=== PATIENT | female | born 1975 | race Caucasian/White ===

== ENCOUNTER → 2024-11-03 | Outpatient (CLI) | payer BC ==
[2024-11-03 08:27] LABS: Basophils # (A) 0.05 10*3/uL (0.00-0.10); Basophils % (A) 0.6 %; Eosinophils % (A) 2.4 %; HCT 41.2 % (37.2-46.3); HGB 14.3 g/dL (12.0-15.0); Lymphocytes # (A) 2.31 10*3/uL (0.90-5.00); Lymphocytes % (A) 27.8 %; MCH 33.3 pg (27.0-32.0); MCHC 34.7 g/dL (32.0-37.0); MCV 95.8 fL (80.0-97.0); Mean Platelet Volume 9.6 fL (9.5-12.2); Monocytes # (A) 0.68 10*3/uL (0.20-1.00); Monocytes % (A) 8.2 %; Neutrophils # (A) 5.06 10*3/uL (1.80-7.70); Neutrophils % (A) 60.9 %; Platelet Count 334 10*3/uL (140-440); RDW 12.4 % (11.5-14.5); WBC 8.31 10*3/uL (4.50-10.00)
[2024-11-03 08:43] LABS: ALT 37 U/L (4-34); AST 36 U/L (14-36); African American GFR (CKD) >90 (>60 ml/min/1.73 sqM); Albumin 4.5 g/dL (3.5-5.0); Albumin/Globulin Ratio 1.5; Alkaline Phosphatase 73 U/L (38-126); Amylase 62 U/L (30-110); Anion Gap 7 mmol/L; Blood Urea Nitrogen 14 mg/dL (7-17); C Reactive Protein <0.5 mg/dL (<1.0); Calcium 9.5 mg/dL (8.4-10.2); Carbon Dioxide 32 mmol/L (22-30); Chloride 100 mmol/L (98-107); Globulin 3.1 g/dL; Glucose 86 mg/dL (74-99); Lipase 317 U/L (23-300); Non-African American GFR(CKD) >90 (>60 ml/min/1.73 sqM); Potassium 4.1 mmol/L (3.5-5.1); Sodium 139 mmol/L (137-145); Total Bilirubin 0.6 mg/dL (0.2-1.3); Total Protein 7.6 g/dL (6.3-8.2)
--- NOTE | 2024-11-03 09:58 | CT ---
EXAMINATION TYPE: CT abdomen pelvis wo/w con DATE OF EXAM: 11/03/2024 8:37 AM COMPARISON: None. CLINICAL INDICATION: Female, 49 years old with history of R10.84 GENERALIZED ABDOMINAL PAIN; generali zed pain for 3 months TECHNIQUE: Axial CT of the abdomen pelvis without and with con; delayed images through the kidneys. Sagittal and coronal reformats were created on a separate workstation. Contrast used:100 mL of Isovue 300 without and with IV Contrast, Oral contrast used: with Oral Contrast CT DLP: 2568.6 mGycm, Automated exposure control for dose reduction was used. FINDINGS: LOWER CHEST: Unremarkable ABDOMEN LIVER: Unremarkable GALLBLADDER AND BILE DUCTS: Bile duct mildly dilated 8 mm. Probably due to postcholecystectomy status . Correlate with alkaline phosphatase and bilirubin levels. PANCREAS: Unremarkable. SPLEEN: Unremarkable. ADRENAL GLANDS: Unremarkable. KIDNEYS AND URETERS: No evidence of hydronephrosis or renal calculus. The ureters are unremarkable. PELVIS BLADDER: No evidence for wall thickening or mass given limitations of exam. REPRODUCTIVE: Uterus anteverted. Both ovaries are visualized. IUD appears abruptly situated within th e uterine cavity. Left-sided pelvic phlebolith. No abnormal fluid collection in the pelvis. ABDOMEN & PELVIS STOMACH AND BOWEL: Post surgical changes of Bakari-en-Y gastric bypass. There are oral contrast has pro gressed to the hepatic flexure of the colon. There is mild overall stool burden. No pericolonic infla mmatory change. No evidence of bowel obstruction. PERITONEUM/RETROPERITONEUM: No evidence of pneumoperitoneum or free fluid. VASCULATURE: No evidence of aortic aneurysm. MUSCULOSKELETAL: Moderate to severe degenerative disc disease mid to lower lumbar spine. Mild to mode rate facet arthropathy throughout. Degenerative trace grade 1 retrolisthesis T12-L4 levels. LYMPH NODES: No gross evidence for lymphadenopathy. SOFT TISSUE/ABDOMINAL WALL: Unremarkable IMPRESSION: 1. Status post Bakari-en-Y gastric bypass. Mild stool burden. 2. Bile duct mildly dilated at 8 mm, probably due to chronic postcholecystectomy status. Correlate wi th alkaline phosphatase and bilirubin levels. 3. Moderate to severe degenerative disc disease mid to lower lumbar spine. [facility], , 11/03/2024 9:56 AM
[2024-11-03 13:11] LABS: Clam IgE <0.10 kU/L; Codfish IgE <0.10 kU/L; Egg White IgE <0.10 kU/L; Peanut IgE <0.10 kU/L; Scallop IgE <0.10 kU/L; Shrimp IgE 0.12 kU/L; Soybean IgE <0.10 kU/L; Walnut IgE (Food) <0.10 kU/L
[2024-11-03 14:02] LABS: Gliadin AB IgA, Deaminated Negative (Negative); Gliadin AB IgA, Unit 1.8 U/mL; Gliadin AB IgG, Deaminated Negative (Negative); Gliadin AB IgG, Unit <0.4 U/mL
== END | disposition home or self-care (01) ==
LOC: RADCTMAIN 06:46
PROVIDERS: ATTEND Internal Medicine Gastroenterology
DX: M51.369 Other intervertebral disc degeneration, lumbar region without mention of lumbar back pain or lower extremity pain (principal); K83.8 Other specified diseases of biliary tract; Z98.84 Bariatric surgery status
CPT/HCPCS: 80053; 82150; 83690; 85025; 86140; 86003; 82785; 83516 ×4; 74178; 36415; Q9967

== ENCOUNTER 2024-11-06 23:56 | Emergency (ER) | payer BC ==
[2024-11-07 00:53] VITALS: BP 141/88; PULSE 76; RESP 16; TEMP 98.2
--- NOTE | 2024-11-07 00:56 | ED ---
Abdominal Pain HPI - General Chief Complaint: Abdominal Pain Stated Complaint: abd pain Time Seen by Provider: 11/07/24 00:56 Source: patient Mode of arrival: ambulatory Limitations: no limitations - History of Present Illness Initial Comments: 49-year-old female presented with chief complaint of abdominal pain. She is having sharp and stabbing pain that started around 7:00 tonight. Located primarily behind her bellybutton and then goes into her back. States that she has been having previous issues with intermittent abdominal pain and had an outpatient lab and CT completed here recently. Review of Systems ROS Statement: Those systems with pertinent positive or pertinent negative responses have been documented in the HPI. ROS Other: All systems not noted in ROS Statement are negative. Past Medical History Past Medical History: GERD/Reflux, Thyroid Disorder History of Any Multi-Drug Resistant Organisms: None Reported Past Surgical History: Appendectomy, Bariatric Surgery, Cholecystectomy, Orthopedic Surgery Additional Past Surgical History / Comment(s): thyroidectomy, knee , wirst Past Psychological History: Anxiety Smoking Status: Never smoker Past Alcohol Use History: Occasional Past Drug Use History: None Reported General Exam - General Exam Comments Initial Comments: Visual Physical Exam Vital signs reviewed General: Well-appearing, nontoxic, no acute distress. Head: Normocephalic, atraumatic Eyes: PERRLA, EOMI ENT: Airway patent Chest: Nonlabored breathing Skin: No visual rash, normal skin tone Neuro: Alert and oriented 3 Musculoskeletal: No gross abnormalities Limitations: no limitations General appearance: alert, in no apparent distress Head exam: Present: atraumatic, normocephalic, normal inspection Eye exam: Present: normal appearance, EOMI Neck exam: Present: normal inspection. Absent: meningismus Respiratory exam: Absent: respiratory distress Cardiovascular Exam: Present: regular rate GI/Abdominal exam: Absent: distended Neurological exam: Present: alert, oriented X3 Psychiatric exam: Present: normal affect, normal mood Skin exam: Present: warm, dry, normal color Course Vital Signs 11/07/24 00:50 Temperature 98.2 F Pulse Rate 76 Respiratory 16 Rate Blood Pressure 141/88 O2 Sat by Pulse 97 Oximetry Medical Decision Making - Medical Decision Making I performed the quick note portion of this visit, electronically signed Evaristo Sparrow PA-C Was pt. sent in by a medical professional or institution ([facility], CRATING AND MOVING ESTIMATOR, urgent care, hospital, or usp...) When possible be specific @ -No Did you speak to anyone other than the patient for history (EMS, parent, family, police, friend...)? What history was obtained from this source @ -No Did you review nursing and triage notes (agree or disagree)? Why? @ -I reviewed and agree with nursing and triage notes Were old charts reviewed (outside hosp., previous admission, EMS record, old EKG, old radiological studies, urgent care reports/EKG's, usp records)? Report findings @ -CT dated 11/03/24 showed status post Bakari-en-Y gastric bypass. Mild stool burden. Bile duct mildly dilated 8 mm probably due to chronic postcholecystectomy status. Moderate to severe degenerative disc disease mid to lower lumbar spine Also reviewed recent outpatient labs, lipase was mildly elevated at 317 Differential Diagnosis (chest pain, altered mental status, abdominal pain women, abdominal pain men, vaginal bleeding, weakness, fever, dyspnea, syncope, headache, dizziness, GI bleed, back pain, seizure, CVA, palpatations, mental health, musculoskeletal)? @ -MDM Differential Abdominal Pain Women: Appendicitis, Cholecystitis, diverticulosis, ischemic bowel, pancreatitis, hepatitis, UTI, gastroenteritis, AAA, incarcerated hernia, bowel obstruction, constipation, inflammatory bowel, hepatitis, peptic ulcer disease, splenic infarction, perforated viscus, vulvitis, ovarian torsion, PID, kidney stone, placenta abruption... This is not meant to be an all-inclusive list EKG interpreted by me (3pts min.). @ -EKG shows sinus rhythm ventricular rate 64. OK interval 177. QRS 106. QT 404. QTc 413 X-rays interpreted by me (1pt min.). @ -None done CT interpreted by me (1pt min.). @ -None done U/S interpreted by me (1pt. min.). @ -None done What testing was considered but not performed or refused? (CT, X-rays, U/S, labs)? Why? @ -None What meds were considered but not given or refused? Why? @ -None Did you discuss the management of the patient with other professionals (professionals i.e. , PA, CRATING AND MOVING ESTIMATOR, lab, RT, psych nurse, protective services social worker, metal mixer, teacher, chief school finance officer, shoe caser)? Give summary @ -No Was smoking cessation discussed for >3mins.? @ -No Was critical care preformed (if so, how long)? @ -No Were there social determinants of health that impacted care today? How? (Homelessness, low income, unemployed, alcoholism, drug addiction, transportation, low edu. Level, literacy, decrease access to med. care, retirement, rehab)? @ -No Was there de-escalation of care discussed even if they declined (Discuss DNR or withdrawal of care, Hospice)? DNR status @ -No What co-morbidities impacted this encounter? (DM, HTN, Smoking, COPD, CAD, Cancer, CVA, ARF, Chemo, Hep., AIDS, mental health diagnosis, sleep apnea, morbid obesity)? @ -None Was patient admitted / discharged? Hospital course, mention meds given and route, prescriptions, significant lab abnormalities, going to OR and other pertinent info. @ -49-year-old female presenting chief complaint of abdominal pain. She has had ongoing issues recently with recurring abdominal pain. Lab work shows no leukocytosis or anemia. Mild transaminitis. Normal bilirubin and alkaline phosphatase. Negative troponin EKG shows no acute ischemic changes. Urine shows signs of contamination. On reassessment patient shows no acute signs of distress. She is educated on today's findings. Educated on recent labs that she had performed outpatient as well. Instructed to follow-up with her PCP and subsorter. Follow-up with PCP. Report back to ER with any new or worsening symptoms. Discussed return parameters and answered all questions. Patient conveyed verbal understanding and agreed to the plan. I discussed this case in detail with my attending Dr. Garcia Undiagnosed new problem with uncertain prognosis? @ -No Drug Therapy requiring intensive monitoring for toxicity (Heparin, Nitro, Insulin, Cardizem)? @ -No Were any procedures done? @ -No Diagnosis/symptom? @ -Abdominal pain Acute, or Chronic, or Acute on Chronic? @ -Acute on chronic Uncomplicated (without systemic symptoms) or Complicated (systemic symptoms)? @ -Uncomplicated Side effects of treatment? @ -No Exacerbation, Progression, or Severe Exacerbation? @ -No Poses a threat to life or bodily function? How? (Chest pain, USA, PA, pneumonia, PE, COPD, DKA, ARF, appy, cholecystitis, CVA, Diverticulitis, Homicidal, Suicidal, threat to staff... and all critical care pts) @ -unlikely - Lab Data Result diagrams: 11/07/24 01:20 11/07/24 01:20 Lab Results 11/07/24 11/07/24 11/07/24 Range/Units 01:20 01:20 01:20 WBC 9.58 (4.50-10.00) 10*3/uL RBC 4.18 (4.10-5.20) 10*6/uL Hgb 13.8 (12.0-15.0) g/dL Hct 39.0 (37.2-46.3) % MCV 93.3 (80.0-97.0) fL MCH 33.0 H (27.0-32.0) pg MCHC 35.4 (32.0-37.0) g/dL Plt Count 320 (140-440) 10*3/uL MPV 9.6 (9.5-12.2) fL Immature Gran % (Auto) 0.2 % Neutrophils % 59.4 % Lymphocytes % 30.0 % Monocytes % 7.6 % Eosinophils % 2.0 % Basophils % 0.8 % Immature Gran # 0.02 (0.00-0.04) 10*3/uL Neutrophils # 5.69 (1.80-7.70) 10*3/uL Lymphocytes # 2.87 (0.90-5.00) 10*3/uL Monocytes # 0.73 (0.20-1.00) 10*3/uL Eosinophils # 0.19 (0.04-0.35) 10*3/uL Basophils # 0.08 (0.00-0.10) 10*3/uL Sodium 136 L (137-145) mmol/L Potassium 4.9 (3.5-5.1) mmol/L Chloride 101 (98-107) mmol/L Carbon Dioxide 27 (22-30) mmol/L Anion Gap 8 mmol/L BUN 14 (7-17) mg/dL Creatinine 0.61 (0.52-1.04) mg/dL Est GFR (CKD-EPI)AfAm >90 (>60 ml/min/1.73 sqM) Est GFR (CKD-EPI)NonAf >90 (>60 ml/min/1.73 sqM) Glucose 89 (74-99) mg/dL Plasma Lactic Acid Bobby 0.7 (0.7-2.0) mmol/L Calcium 9.6 (8.4-10.2) mg/dL Total Bilirubin 0.9 (0.2-1.3) mg/dL AST 50 H (14-36) U/L ALT 46 H (4-34) U/L Alkaline Phosphatase 65 (38-126) U/L Troponin I (0.000-0.034) ng/mL Total Protein 7.6 (6.3-8.2) g/dL Albumin 4.6 (3.5-5.0) g/dL Amylase 50 (30-110) U/L Lipase 89 (23-300) U/L Urine Color Urine Appearance (Clear) Urine pH (5.0-8.0) Ur Specific [place] (1.001-1.035) Urine Protein (Negative) Urine Glucose (UA) (Negative) Urine Ketones (Negative) Urine Blood (Negative) Urine Nitrite (Negative) Urine Bilirubin (Negative) Urine Urobilinogen (<2.0) mg/dL Ur Leukocyte Esterase (Negative) Urine RBC (0-5) /hpf Urine WBC (0-5) /hpf Ur Squamous Epith Cells (0-4) /hpf Amorphous Sediment (None) /hpf Urine Mucus (None) /hpf 11/07/24 11/07/24 Range/Units 01:20 01:25 WBC (4.50-10.00) 10*3/uL RBC (4.10-5.20) 10*6/uL Hgb (12.0-15.0) g/dL Hct (37.2-46.3) % MCV (80.0-97.0) fL MCH (27.0-32.0) pg MCHC (32.0-37.0) g/dL Plt Count (140-440) 10*3/uL MPV (9.5-12.2) fL Immature Gran % (Auto) % Neutrophils % % Lymphocytes % % Monocytes % % Eosinophils % % Basophils % % Immature Gran # (0.00-0.04) 10*3/uL Neutrophils # (1.80-7.70) 10*3/uL Lymphocytes # (0.90-5.00) 10*3/uL Monocytes # (0.20-1.00) 10*3/uL Eosinophils # (0.04-0.35) 10*3/uL Basophils # (0.00-0.10) 10*3/uL Sodium (137-145) mmol/L Potassium (3.5-5.1) mmol/L Chloride (98-107) mmol/L Carbon Dioxide (22-30) mmol/L Anion Gap mmol/L BUN (7-17) mg/dL Creatinine (0.52-1.04) mg/dL Est GFR (CKD-EPI)AfAm (>60 ml/min/1.73 sqM) Est GFR (CKD-EPI)NonAf (>60 ml/min/1.73 sqM) Glucose (74-99) mg/dL Plasma Lactic Acid Bobby (0.7-2.0) mmol/L Calcium (8.4-10.2) mg/dL Total Bilirubin (0.2-1.3) mg/dL AST (14-36) U/L ALT (4-34) U/L Alkaline Phosphatase (38-126) U/L Troponin I <0.012 (0.000-0.034) ng/mL Total Protein (6.3-8.2) g/dL Albumin (3.5-5.0) g/dL Amylase (30-110) U/L Lipase (23-300) U/L Urine Color Yellow Urine Appearance Cloudy H (Clear) Urine pH 6.5 (5.0-8.0) Ur Specific [place] 1.019 (1.001-1.035) Urine Protein Negative (Negative) Urine Glucose (UA) Negative (Negative) Urine Ketones Negative (Negative) Urine Blood Small H (Negative) Urine Nitrite Negative (Negative) Urine Bilirubin Negative (Negative) Urine Urobilinogen <2.0 (<2.0) mg/dL Ur Leukocyte Esterase Negative (Negative) Urine RBC 4 (0-5) /hpf Urine WBC 6 H (0-5) /hpf Ur Squamous Epith Cells 6 H (0-4) /hpf Amorphous Sediment Rare H (None) /hpf Urine Mucus Rare H (None) /hpf Disposition Clinical Impression: Abdominal pain Disposition: HOME SELF-CARE Condition: Good Instructions (If sedation given, give patient instructions): Abdominal Pain (ED) Additional Instructions: Follow-up with PCP. Report back to ER with any new or worsening symptoms Is patient prescribed a controlled substance at d/c from ED?: No Referrals: Nonstaff,Physician [Primary Care Provider] - 1-2 days Time of Disposition: 03:17
[2024-11-07 01:47] LABS: Basophils # (A) 0.08 10*3/uL (0.00-0.10); Basophils % (A) 0.8 %; Eosinophils # (A) 0.19 10*3/uL (0.04-0.35); Eosinophils % (A) 2.0 %; HCT 39.0 % (37.2-46.3); HGB 13.8 g/dL (12.0-15.0); Lymphocytes # (A) 2.87 10*3/uL (0.90-5.00); Lymphocytes % (A) 30.0 %; MCH 33.0 pg (27.0-32.0); MCHC 35.4 g/dL (32.0-37.0); MCV 93.3 fL (80.0-97.0); Monocytes # (A) 0.73 10*3/uL (0.20-1.00); Monocytes % (A) 7.6 %; Neutrophils # (A) 5.69 10*3/uL (1.80-7.70); Neutrophils % (A) 59.4 %; Platelet Count 320 10*3/uL (140-440); RBC 4.18 10*6/uL (4.10-5.20); RDW 12.2 % (11.5-14.5); WBC 9.58 10*3/uL (4.50-10.00)
[2024-11-07 02:04] LABS: ALT 46 U/L (4-34); African American GFR (CKD) >90 (>60 ml/min/1.73 sqM); Albumin 4.6 g/dL (3.5-5.0); Amylase 50 U/L (30-110); Anion Gap 8 mmol/L; Blood Urea Nitrogen 14 mg/dL (7-17); Calcium 9.6 mg/dL (8.4-10.2); Carbon Dioxide 27 mmol/L (22-30); Chloride 101 mmol/L (98-107); Glucose 89 mg/dL (74-99); Lipase 89 U/L (23-300); Non-African American GFR(CKD) >90 (>60 ml/min/1.73 sqM); Sodium 136 mmol/L (137-145); Total Protein 7.6 g/dL (6.3-8.2)
[2024-11-07 02:06] LABS: AST 50 U/L (14-36); Alkaline Phosphatase 65 U/L (38-126); Potassium 4.9 mmol/L (3.5-5.1)
[2024-11-07 02:35] LABS: Amorphous Sediment,Urine Rare /hpf; Bilirubin,Urine Negative (Negative); Blood,Urine Small (Negative); Color,Urine Yellow; Glucose,Urine (UA) Negative (Negative); Ketones,Urine Negative (Negative); Leukocyte Esterase,Urine Negative (Negative); Mucus,Urine Rare /hpf; Nitrite,Urine Negative (Negative); PH, Urine 6.5 (5.0-8.0); Protein,Urine Negative (Negative); RBC,Urine 4 /hpf (0-5); Specific Gravity,Urine 1.019 (1.001-1.035); Squamous Epithelial Cell,Urine 6 /hpf (0-4); Urobilinogen,Urine <2.0 mg/dL (<2.0); WBC,Urine 6 /hpf (0-5)
== END 2024-11-07 03:58 | disposition home or self-care (01) ==
LOC: EC 23:56
DX: R10.9 Unspecified abdominal pain (principal)
CPT/HCPCS: 36415; 80053; 81001; 82150; 83605; 83690; 84484; 85025; 93005; 99284